=== PATIENT | female | born 2000 | race Caucasian/White ===

== ENCOUNTER 2023-06-09 13:20 | Outpatient (CLI) ==
[~2023-06-09] VITALS: Ht 165.1 cm; Wt 70.3 kg
[2023-06-09] MEDS ORDERED: PRENTAB9 PO (13:42)
[2023-06-09 13:43] VITALS: BP 124/69
[2023-06-09] MEDS ORDERED: HOME MED LIST COMPLETE! XX SCH (13:45)
[2023-06-09] MEDS ORDERED: NITROFURANTOIN (MACROBID) 100 MG CAP PO ONE (13:55)
[2023-06-09] MEDS ORDERED: ACETAMINOPHEN 500 MG TAB PO ONE (13:55)
[2023-06-09] MEDS ORDERED: GABAPENTIN 300 MG CAP PO ONE (15:00)
[2023-06-09] MEDS ORDERED: CYCLOBENZAPRINE 10MG TABLET PO ONE (15:00)
== END 2023-06-09 15:01 | disposition home or self-care (01) ==
LOC: M LDO 13:20
PROVIDERS: ATTEND Obstetrics & Gynecology
DX: O23.42 Unspecified infection of urinary tract in pregnancy, second trimester (principal); N39.0 Urinary tract infection, site not specified; Z3A.27 27 weeks gestation of pregnancy
CPT/HCPCS: 59025; G0463

== ENCOUNTER 2023-08-18 11:41 | Outpatient (CLI) | payer OTHER ==
[~2023-08-18] VITALS: Ht 165.1 cm; Wt 74.3 kg
[~2023-08-18 11:41] MED LIST: PRENTAB9 PO
[2023-08-18 11:58] VITALS: BP 106/58
[2023-08-18] MEDS ORDERED: HOME MED LIST COMPLETE! XX SCH (12:00)
== END 2023-08-18 14:04 | disposition home or self-care (01) ==
LOC: M LDO 11:41
PROVIDERS: ATTEND Obstetrics & Gynecology
DX: O47.03 False labor before 37 completed weeks of gestation, third trimester (principal); Z3A.36 36 weeks gestation of pregnancy
CPT/HCPCS: 59025; G0463

== ENCOUNTER 2023-09-02 19:04 | Outpatient (CLI) | payer OTHER ==
[~2023-09-02] VITALS: Ht 165.1 cm; Wt 74.7 kg
[2023-09-02 19:36] VITALS: BP 121/81
== END 2023-09-02 20:30 | disposition home or self-care (01) ==
LOC: M LDO 19:04
PROVIDERS: ATTEND Obstetrics & Gynecology
DX: O47.1 False labor at or after 37 completed weeks of gestation (principal); Z3A.39 39 weeks gestation of pregnancy
CPT/HCPCS: 59025; G0463

== ENCOUNTER 2023-09-03 09:55 | Inpatient (IN) | payer OTHER ==
[~2023-09-03] VITALS: Ht 165.1 cm; Wt 75.4 kg
[2023-09-03] VITALS (33 sets, daily range): BP systolic 108–136; BP diastolic 59–84; O2SAT 98–100
[2023-09-03] MEDS ORDERED: OXYTOCIN DRIP 30 UNITS in IV 1 EA IV SCH (10:20)
[2023-09-03] MEDS ORDERED: LACTATED RINGER'S 1000 ML IV STA (10:20)
[2023-09-03] MEDS ORDERED: OXYTOCIN INJ 10UNITS/ML 1ML VIAL IM PRN (10:20)
[2023-09-03] MEDS ORDERED: CARBOPROST TROMETHAMINE 250 MCG/ML AMP IM PRN (10:20)
[2023-09-03] MEDS ORDERED: OXYTOCIN DRIP 30 UNITS in IV 1 EA IV PRN ×6 (10:20)
[2023-09-03] MEDS ORDERED: LR 1,000 ML IV SCH ×2 (10:20)
[2023-09-03] MEDS ORDERED: TRANEXAMIC ACID INJection 1,000 MG in NS 100 ML IV PRN (10:20)
[2023-09-03] MEDS ORDERED: HOME MED LIST COMPLETE! XX SCH (10:20)
[2023-09-03] MEDS ORDERED: LIDOCAINE 1% MDV 20ML VIAL INFIL PRN (10:20)
[2023-09-03] MEDS ORDERED: OXYTOCIN INJ 10UNITS/ML 1ML VIAL IV PRN (10:20)
[2023-09-03] MEDS ORDERED: METHYLERGONOVINE MALEATE 0.2MG/ML 1ML VIAL IM PRN (10:20)
[2023-09-03 10:42] LABS: HEMATOCRIT 29.9 % (36.0-47.0); HEMOGLOBIN 9.5 g/dl (12.0-15.5); MEAN CORPUSCULAR HEMOGLOBIN 23.2 pg (27.0-33.0); MEAN CORPUSCULAR HGB CONC 31.8 g/dl (32.0-36.5); MEAN CORPUSCULAR VOLUME 73.1 fl (80.0-96.0); PLATELET COUNT, AUTOMATED 222 10^3/uL (150-450); RED BLOOD COUNT 4.09 10^6/uL (4.00-5.40); WHITE BLOOD COUNT 10.1 10^3/uL (4.0-10.0)
[2023-09-03] MEDS ORDERED: ONDANSETRON 4MG 2ML VIAL IV PRN (10:50)
[2023-09-03] MEDS ORDERED: NALOXONE INJ 0.4MG/1ML VIAL IV PRN (10:50)
[2023-09-03] MEDS ORDERED: diphenhydrAMINE 50MG/ML VIAL IV PRN (10:50)
[2023-09-03] MEDS ORDERED: LR 500 ML IV PRN (10:50)
[2023-09-03] MEDS ORDERED: EPIDURAL/PCA KEYS XX PRN (10:50)
[2023-09-03] MEDS ORDERED: FENTANYL/ROPIVACAINE/NACL BAG 100 ML EPIDURAL SCH (10:50)
[2023-09-03] MEDS ORDERED: ePHEDrine SULFATE 25 MG/5 ML(5MG/ML) SYRINGE IVP PRN (10:50)
[2023-09-03] MEDS ORDERED: ANUSOL HC CREAM 30GM TOP PRN (14:20)
[2023-09-03] MEDS ORDERED: MOM 30ML SUSPENSION UDC PO PRN (14:20)
[2023-09-03] MEDS ORDERED: RHOGAM 300MCG (1500IU) INJ IM SCH (14:20)
[2023-09-03 14:21] LABS: CORD GAS ABE A -3.9; CORD GAS HCO3 A 24.3 MMOL/L; CORD GAS O2 SAT A 49.2 %; CORD GAS PCO2 A 57.3 mmHg; CORD GAS PH A 7.246 UNITS; CORD GAS PO2 A 22.6 mmHg; CORD GAS SBC A 20.2 MMOL/L; CORD GAS TCO2 A 26.1 MMOL/L
[2023-09-03 14:23] LABS: CORD GAS ABE V -6.5; CORD GAS HCO3 V 18.5 MMOL/L; CORD GAS PCO2 V 35.3 mmHg; CORD GAS PH V 7.337 UNITS; CORD GAS PO2 V 42.7 mmHg; CORD GAS TCO2 V 19.6 MMOL/L
[2023-09-03] MEDS: DIBUCAINE 1% OINTMENT 30GM TOP PRN (16:16)
[2023-09-03] MEDS: ACETAMINOPHEN 500 MG TAB PO PRN (19:32)
[2023-09-03] MEDS: DOCUSATE SODIUM 100MG CAPSULE PO SCH (19:32)
[2023-09-04] MEDS: IBUPROFEN 800 MG TAB PO PRN ×2 (05:14→13:18)
[2023-09-04 06:00] VITALS: BP 114/79; O2SAT 99
[2023-09-04] MEDS: DOCUSATE SODIUM 100MG CAPSULE PO SCH ×2 (08:10→19:56)
[2023-09-04] MEDS: PRENATAL VITAMINS CHEWABLE TABLET PO SCH (08:10)
[2023-09-04] MEDS: DIBUCAINE 1% OINTMENT 30GM TOP PRN (17:22)
[2023-09-04 18:00] VITALS: BP 135/70; O2SAT 100
[2023-09-04 22:00] VITALS: BP 110/64; O2SAT 99
[2023-09-04] MEDS ORDERED: CYCLOBENZAPRINE 5MG TABLET PO ONE (22:40)
[2023-09-04] MEDS: ACETAMINOPHEN 500 MG TAB PO PRN (22:58)
[2023-09-05 06:00] VITALS: BP 104/58; O2SAT 98
[2023-09-05] MEDS ORDERED: IBUP80TA PO (07:40)
[2023-09-05] MEDS ORDERED: COLA100C5 PO (07:40)
[2023-09-05] MEDS ORDERED: ACET-683 PO (07:40)
[2023-09-05] MEDS ORDERED: FERR325T3 PO (07:40)
[2023-09-05] MEDS: PRENATAL VITAMINS CHEWABLE TABLET PO SCH (08:07)
[2023-09-05] MEDS ORDERED: BOOSTRIX VACCINE (TETANUS/DIPHTH/ACEL. PERTUSSIS) 0.5ML SYR IM.IMMUN ONE (09:00)
[2023-09-05] MEDS: DOCUSATE SODIUM 100MG CAPSULE PO SCH (09:00)
[2023-09-05] MEDS ORDERED: MEASLES,MUMPS,RUBELLA VACCINE INJ (MMR-II) SC.IMMUN ONE (09:00)
[2023-09-05] MEDS: ACETAMINOPHEN 500 MG TAB PO PRN (12:25)
== END 2023-09-05 17:55 | disposition home or self-care (01) | DRG 807 ==
LOC: M LDO 09:55 → M LDI 10:14 → M OBS 18:26
PROVIDERS: ADMIT Obstetrics & Gynecology; ATTEND Obstetrics & Gynecology
PROC: 10E0XZZ Delivery of Products of Conception, External Approach (ICD-10-PCS; principal; 2023-09-03)
PROC: 0HQ9XZZ Repair Perineum Skin, External Approach (ICD-10-PCS; 2023-09-03)
DX: O70.0 First degree perineal laceration during delivery (principal); Z37.0 Single live birth; Z3A.39 39 weeks gestation of pregnancy